=== PATIENT | female | born 1990 | race Caucasian/White ===

== ENCOUNTER 2016-09-20 16:55 | Emergency (ER) | payer MEDICAID, OTHER ==
[~2016-09-20] VITALS: Ht 170.2 cm; Wt 68.0 kg
[~2016-09-20 16:55] MED LIST: FIORIC PO; LORTA5 PO; ZOFR4TAB3 SL
[2016-09-20 16:59] VITALS: BP 106/72; PULSE 87; RESP 16; TEMP 97.8; O2SAT 99
[2016-09-20] MEDS ORDERED: ZOFR4TAB PO (17:09)
[2016-09-20 17:22] LABS: BLOOD, URINE NEG (NEG); GLUCOSE,URINE NEG (NEG); KETONE, URINE NEG (NEG); PH, URINE 5.5 (5.0-8.5)
[2016-09-20] MEDS ORDERED: SODIUM CHLOR 0.9% 1000 ML INJ 1,000 ML IV SCH (17:26)
[2016-09-20 17:28] LABS: NITRITE,URINE POS (NEG)
[2016-09-20 17:29] LABS: BACTERIA, URINE RARE /hpf; COMMENT (UR) CULTURE INDICATED; CULTURE IF INDICATED CULTURE INDICATED; RBC, URINE 0-2 /hpf (0-3); SQUAMOUS EPITHELIAL CELL URINE 0-5 /hpf (0-5); URINE COLOR STRAW (YELLW/STRAW); WBC, URINE 0-2 /hpf (0-5)
[2016-09-20] MEDS ORDERED: MORPHINE SULFATE 4 MG/ML INJ IV PUSH ONE (17:30)
[2016-09-20] MEDS ORDERED: ONDANSETRON HCL 4 MG/2 ML VIAL IVP ONE (17:30)
[2016-09-20] MEDS ORDERED: SODIUM CHLORIDE 0.9% FLUSH 5 ML FLUSH IVF PRN (17:30)
[2016-09-20 17:34] LABS: AUTOMATED NEUTROPHIL # 4.3 TH/MM3 (1.8-7.7); BASOPHIL # 0.2 TH/MM3 (0-0.2); BASOPHIL % 2.5 % (0.0-2.0); EOSINOPHIL # 0.2 TH/MM3 (0-0.4); EOSINOPHIL % 2.3 % (0.0-4.0); HEMATOCRIT 36.5 % (35.0-46.0); HEMO FLAGS DIFF FINAL; LYMPH % 22.7 % (9.0-44.0); LYMPHOCYTE # 1.6 TH/MM3 (1.0-4.8); MEAN CELL VOLUME 86.1 FL (80.0-100.0); MEAN CORPUSCULAR HEMOGLOBIN 30.1 PG (27.0-34.0); MEAN CORPUSCULAR HGB CONC 34.9 % (32.0-36.0); MONO % 7.9 % (0.0-8.0); NEUT % 64.6 % (16.0-70.0); PLATELET COUNT 223 TH/MM3 (150-450); RED BLOOD COUNT 4.24 MIL/MM3 (4.00-5.30); RED CELL DISTRIBUTION WIDTH 12.1 % (11.6-17.2); WHITE BLOOD COUNT 6.8 TH/MM3 (4.0-11.0)
--- NOTE | 2016-09-20 17:34 | PD ---
HPI . Right upper quadrant abdominal pain Chief Complaint: Abdominal Pain Time Seen by Provider: 17:06 Travel History International Travel<30 days: No Contact w/Intl Traveler<30days: No Traveled to known affect area: No History of Present Illness HPI Patient presents with about a 3 or 4 day history of right upper quadrant abdominal pain. Pain is exacerbated by eating and movement. She reports associated nausea but no vomiting. No fever. No diarrhea. No urinary symptoms. Patient is about 8 weeks . She states that she had an ultrasound done by her telephonic rn earlier this week and that it showed an IUP. She denies any injury related to the such as abnormal bleeding, discharge, dyspareunia or pelvic cramping. PFSH Past Medical History Medical History: Denies Significant Hx Diminished Hearing: No Immunizations Current: Yes Tetanus Vaccination: Unknown ?: LMP: 07/15/16 : 1 Para: 1 Ectopic : No Ovarian Cysts: No Tubal Ligation: No Past Surgical History Cholecystectomy: Yes Hysterectomy: No Tonsillectomy: Yes Social History Alcohol Use: Yes (OCC) Tobacco Use: No Substance Use: No Allergies-Medications (Allergen,Severity, Reaction): Coded Allergies: No Known Allergies (Verified , 09/20/16) Reported Meds & Prescriptions Reported Meds & Active Scripts Active Bentyl (Dicyclomine HCl) 20 Mg Tab 20 Mg PO QID Phenergan (Promethazine HCl) 25 Mg Tab 25 Mg PO Q6H PRN Reported Zofran (Ondansetron HCl) 4 Mg Tab 4 Mg PO Q6HR PRN Review of Systems Except as stated in HPI: all other systems reviewed are Neg General / Constitutional: No: Fever, Chills Gastrointestinal: Positive: Nausea, Abdominal Pain, Loss of Appetite, No: Vomiting, Diarrhea, Constipation Genitourinary: No: Urgency, Frequency, Dysuria, Hematuria, Pelvic Pain, Flank Pain, Dyspareunia, Discharge, Vaginal Bleeding Physical Exam Narrative GENERAL: Healthy-appearing young woman in no acute distress SKIN: Warm and dry. HEAD: Atraumatic. Normocephalic. EYES: Pupils equal and round. ENT: No nasal bleeding or discharge. Mucous membranes pink and moist. NECK: Trachea midline. CARDIOVASCULAR: Regular rate and rhythm. Heart sounds are normal. RESPIRATORY: No accessory muscle use. Lungs are clear. GASTROINTESTINAL: Abdomen soft. Right upper quadrant tenderness. Nondistended. No suprapubic tenderness. MUSCULOSKELETAL: No obvious deformities. No edema. NEUROLOGICAL: Awake and alert. No obvious cranial nerve deficits. Motor grossly within normal limits. Normal speech. PSYCHIATRIC: Appropriate mood and affect; insight and judgment normal. Data Data Last Documented VS Vital Signs Date Time Temp Pulse Resp B/P Pulse Ox O2 Delivery O2 Flow Rate FiO2 09/20/16 16:59 97.8 87 16 106/72 99 Orders Urinalysis - C+S If Indicated (09/20/16 16:57) Ed Urine Pregnancytest Poc (09/20/16 16:57) Beta Hcg (Quant/Titer) (09/20/16 17:06) Us Pelvis (Ques Pr/Ect)W Trans (09/20/16 ) Ed Poc Ultrasound (09/20/16 17:06) Complete Blood Count With Diff (09/20/16 17:26) Comprehensive Metabolic Panel (09/20/16 17:26) Lipase (09/20/16 17:26) Iv Access Insert/Monitor (09/20/16 17:26) Morphine Inj (Morphine Inj) (09/20/16 17:30) Ondansetron Inj (Zofran Inj) (09/20/16 17:30) Sodium Chlor 0.9% 1000 Ml Inj (Ns 1000 M (09/20/16 17:26) Sodium Chloride 0.9% Flush (Ns Flush) (09/20/16 17:30) Urine Culture (09/20/16 17:05) Promethazine (Phenergan) (09/20/16 17:45) Labs Laboratory Tests Test 09/20/16 09/20/16 17:05 17:10 Urine Color STRAW Urine Turbidity CLEAR Urine pH 5.5 Urine Specific [place] 1.004 Urine Protein NEG mg/dL Urine Glucose (UA) NEG mg/dL Urine Ketones NEG mg/dL Urine Occult Blood NEG Urine Nitrite POS Urine Bilirubin NEG Urine Leukocyte Esterase NEG Urine RBC 0-2 /hpf Urine WBC 0-2 /hpf Urine Squamous Epithelial 0-5 /hpf Cells Urine Bacteria RARE /hpf Microscopic Urinalysis Comment CULTURE INDICATED White Blood Count 6.8 TH/MM3 Red Blood Count 4.24 MIL/MM3 Hemoglobin 12.8 GM/DL Hematocrit 36.5 % Mean Corpuscular Volume 86.1 FL Mean Corpuscular Hemoglobin 30.1 PG Mean Corpuscular Hemoglobin 34.9 % Concent Red Cell Distribution Width 12.1 % Platelet Count 223 TH/MM3 Mean Platelet Volume 7.6 FL Neutrophils (%) (Auto) 64.6 % Lymphocytes (%) (Auto) 22.7 % Monocytes (%) (Auto) 7.9 % Eosinophils (%) (Auto) 2.3 % Basophils (%) (Auto) 2.5 % Neutrophils # (Auto) 4.3 TH/MM3 Lymphocytes # (Auto) 1.6 TH/MM3 Monocytes # (Auto) 0.5 TH/MM3 Eosinophils # (Auto) 0.2 TH/MM3 Basophils # (Auto) 0.2 TH/MM3 CBC Comment DIFF FINAL Differential Comment Sodium Level 140 MEQ/L Potassium Level 3.9 MEQ/L Chloride Level 107 MEQ/L Carbon Dioxide Level 23.1 MEQ/L Anion Gap 10 MEQ/L Blood Urea Nitrogen 6 MG/DL Creatinine 0.60 MG/DL Estimat Glomerular Filtration 119 ML/MIN Rate Random Glucose 102 MG/DL Calcium Level 8.4 MG/DL Total Bilirubin 0.5 MG/DL Aspartate Amino Transf 28 U/L (AST/SGOT) Alanine Aminotransferase 42 U/L (ALT/SGPT) Alkaline Phosphatase 71 U/L Total Protein 6.8 GM/DL Albumin 3.3 GM/DL Lipase 111 U/L Human Chorionic Gonadotropin, 369054 MIU/ML Quant MDM Medical Decision Making Medical Screen Exam Complete: Yes Emergency Medical Condition: Yes Differential Diagnosis Differential diagnosis of abdominal pain includes but is not limited to gastritis, pancreatitis, hepatitis, gastroenteritis, gallbladder disease, constipation, urinary retention, UTI, peptic ulcer disease, diverticulitis or appendicitis Narrative Course Patient presents complaining with right upper quadrant abdominal pain. Incidentally, she is . However, her symptoms do not sound like they are related to . She reports positive previous similar symptoms when she had gallstone pancreatitis. She has subsequently had a cholecystectomy. Her CBC is normal. UA shows rare bacteria and is nitrite positive. She has normal liver function studies and a normal lipase. Quantitative hCG is 182,000. The patient has no evidence of pancreatitis. She is not septic. She does have a UTI. Verbal report from the ultrasound technologist sonographer is that she has a 9 week viable IUP. Diagnosis Primary Impression: Right upper quadrant abdominal pain Additional Impressions: Qualified Code: Z3A.09 - 9 weeks gestation of UTI (urinary tract infection) Qualified Code: N30.01 - Acute cystitis with hematuria Scripts Nitrofurantoin Monohydrate Macrocrystals (Macrobid)100 Mg [id number] Mg PO BID #14 CAP Ref 0 Prov:Ingrid Montana MD 09/20/16 Dicyclomine (Bentyl)20 Mg Tab20 Mg PO QID #10 TAB Ref 0 Prov:Ingrid Montana MD 09/20/16 Promethazine (Phenergan)25 Mg Tab25 Mg PO Q6H PRN (Nausea/Vomiting) #10 TAB Ref 0 Prov:Ingrid Montana MD 09/20/16 Disposition: 01 DISCHARGE HOME Condition: Stable Ingrid Montana MD Sep 20, 2016 17:34
[2016-09-20 17:36] LABS: CHLORIDE 107 MEQ/L (98-107); POTASSIUM 3.9 MEQ/L (3.5-5.1); SODIUM (NA) 140 MEQ/L (136-145)
[2016-09-20 17:40] LABS: ANION GAP 10 MEQ/L (5-15); BICARBONATE 23.1 MEQ/L (21.0-32.0); BLOOD UREA NITROGEN 6 MG/DL (7-18)
[2016-09-20 17:43] LABS: ALT (GPT) 42 U/L (10-53); AST (GOT) 28 U/L (15-37); GLOMERULAR FILTRATION RATE 119 ML/MIN (>89)
[2016-09-20 17:44] LABS: TOTAL BILIRUBIN ADULT 0.5 MG/DL (0.2-1.0)
[2016-09-20] MEDS ORDERED: PROMETHAZINE HCL 25 MG TAB PO ONE (17:45)
[2016-09-20 17:46] LABS: ALKALINE PHOSPHATASE 71 U/L (45-117)
[2016-09-20 17:53] LABS: BETA HCG QUANT 182411 MIU/ML (0-5)
[2016-09-20] MEDS ORDERED: BENT20TA PO (18:10)
[2016-09-20] MEDS ORDERED: PROM25TA5 PO (18:10)
[2016-09-20] MEDS ORDERED: MACR100C2 PO (18:24)
[2016-09-20 18:56] VITALS: RESP 16
--- NOTE | 2016-09-20 19:07 | RADHPO ---
EXAM DATE/TIME: 09/20/2016 22:57 [facility] COMPARISON: No previous studies available for comparison. INDICATIONS : Pelvic pain. LAB(S): Beta-hC MEDICAL HISTORY : . SURGICAL HISTORY : Tonsillectomy. Cholecystectomy. ENCOUNTER: Initial ACUITY: 1 day PAIN SCORE: 5/10 LOCATION: Bilateral pelvis MEASUREMENTS: UTERUS: 10.9 x 8.0 x 6.5 cm ENDOMETRIAL STRIPE: 3 mm RIGHT OVARY: 3.0 x 2.2 x 1.3 cm LEFT OVARY: 4.1 x 3.4 x 2.5 cm FINDINGS: UTERUS: There is a single live intrauterine gestation. cardiac activity is identified. Th e crown-rump length is 1.9 cm which corresponds to a gestational age of 8 weeks, 3 days. There is so me minimal cystic change seen in the subchorionic region around the fundus which may represent some m ild hemorrhage. RIGHT OVARY: The right ovary appears normal. LEFT OVARY: There is a 2.8 x 2.6 x 2.2 cm cystic area seen at the left ovary likely related to a corpus luteal cyst. MISCELLANEOUS: There is mild free fluid in the pelvis. CONCLUSION: 1. Single live IUP at 8 weeks, 3 days. There may be a small area of subchorionic hemorrhage over th e fundal portion of the gestation. 2. Small amount of fluid in the pelvis. Hiram Hawkins MD on September 20, 2016 at 18:59 Board Certified Radiologist. This report was verified electronically.
[2016-09-20 19:23] VITALS: BP 106/71
== END 2016-09-20 19:33 | disposition home or self-care (01) ==
LOC: PHED 16:55
DX: O26.891 Other specified pregnancy related conditions, first trimester (principal); R10.11 Right upper quadrant pain
CPT/HCPCS: 76700; 76817; 80053; 81001; 83690; 84702; 84703; 85025; 87086; 96361; 96374; 99284; J2270; J7030; Q0169

== ENCOUNTER 2017-03-08 20:55 | Emergency (ER) | payer OTHER ==
[~2017-03-08 20:55] MED LIST changes: +BENT20TA PO; -FIORIC PO; -LORTA5 PO; +MACR100C2 PO; +PROM25TA5 PO; +ZOFR4TAB PO; -ZOFR4TAB3 SL
--- NOTE | 2017-03-08 21:45 | PD ---
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 9 oz. vaginal delivery complicated by postdates Past Surgical History Narrative Surgical Tonsils and gallbladder removed Family History Narrative Family History Heart disease diabetes Social History Alcohol Use: No Tobacco Use: No Substance Abuse: No Allergies-Medications (Allergen,Severity, Reaction): Coded Allergies: No Known Allergies (Verified , 09/20/16) Home Meds Active Scripts Nitrofurantoin Monohydrate Macrocrystals (Macrobid)100 Mg Qnu325 Mg PO BID #14 CAP Ref 0 Prov:Ingrid Montana MD 09/20/16 Dicyclomine (Bentyl)20 Mg Tab20 Mg PO QID #10 TAB Ref 0 Prov:Ingrid Montana MD 09/20/16 Promethazine (Phenergan)25 Mg Tab25 Mg PO Q6H PRN (Nausea/Vomiting) #10 TAB Ref 0 Prov:Ingrid Montana MD 09/20/16 Reported Medications Ondansetron (Zofran)4 Mg Tab4 Mg PO Q6HR PRN (NAUSEA OR VOMITING) Ref 0 09/20/16 Review of Systems Respiratory: Short of Breath Gastrointestinal: Abdominal Pain (as per history of present illness) Genitourinary: Frequency Musculoskeletal: Other (low back pain) Physical Exam Narrative GENERAL: Well-nourished, well-developed patient. Alert oriented 3 and cooperative in no acute distress SKIN: Warm and dry. HEAD: Normocephalic and atraumatic. EYES: No scleral icterus. No injection or drainage. ENT: No nasal drainage noted. Mucous membranes pink. Airway patent. NECK: Supple, trachea midline. No JVD. CARDIOVASCULAR: Regular rate and rhythm without murmurs, gallops, or rubs. RESPIRATORY: Breath sounds equal bilaterally. No accessory muscle use. ABDOMEN/GI: Gravid consistent with 32 weeks the uterus is soft nontender no palpable contractions mild tenderness in the right fundal area the right upper quadrant itself is nontender the epigastric area is negative bowel sounds are positive Gravid to [-] weeks size 32 Fundal Height: [-] GENITOURINARY: External Genitalia: intact and normal in appearance BUS glands: [-] Cervix: [-] Posterior firm Dilatation: [-] Closed Effacement: [-] 0 Station: [-] Ballotable Presentation: [-] Vertex Membranes: [intact o Uterine Contractions: [-]0 FHT's: Category: [-] 1 Baseline: [-] 150 Reactive: [-] + Variability: [-] Moderate Decels: [-] 0 EXTREMITIES: No cyanosis or edema. 2+ reflexes BACK: Nontender without obvious deformity. Uncomfortable when both kidneys retouched NEUROLOGICAL: Awake and alert. Motor and sensory grossly within normal limits. Five out of 5 muscle strength in all muscle groups. Normal speech. Data Data Vital Signs Reviewed: Yes (blood pressures 113/72 pulse 106 temperatures 98.2) MDM Medical Record Reviewed: No (no records available) Interpretation(s) 26-year-old at 32 weeks and 3 days Not in labor Generally not feeling well Upper abdominal pain Rule out UTI Narrative Course / MDM Liver function studies are normal White count is not elevated Hemoglobin is 10 Category 1 tracing no contractions Plan External monitoring By mouth fluid hydration CBC CMP uric acid urinalysis Reevaluation Physician Communication Spoke with Dr. Schwarz she agrees with evaluation and management bile salts have been ordered however the patient has not had the blood drawn she is encouraged to have the blood drawn tomorrow She is to call Dr. Schwarz's office in the morning to make an appointment to be seen within the next 24-48 hours she is to have her bile salts drawn Diagnosis Diagnosis: Primary Impression: 32 weeks gestation of Additional Impressions: Abdominal pain Qualified Code: R10.10 - Pain of upper abdomen [place]' contraction Disposition: 01 DISCHARGE HOME Condition: Stable January Madrid MD Mar 08, 2017 21:45
[2017-03-08 22:04] LABS: BACTERIA, URINE RARE /hpf; BLOOD, URINE NEG (NEG); COMMENT (UR) CULT NOT INDICATED; CULTURE IF INDICATED CULT NOT INDICATED; GLUCOSE,URINE NEG (NEG); KETONE, URINE NEG (NEG); NITRITE,URINE NEG (NEG); PH, URINE 7.5 (5.0-8.5); SQUAMOUS EPITHELIAL CELL URINE 2 /hpf (0-5); URINE COLOR YELLOW (YELLW/STRAW)
[2017-03-08 22:06] LABS: HEMATOCRIT 30.7 % (35.0-46.0); MEAN CELL VOLUME 83.8 FL (80.0-100.0); MEAN CORPUSCULAR HEMOGLOBIN 29.1 PG (27.0-34.0); MEAN CORPUSCULAR HGB CONC 34.8 % (32.0-36.0); PLATELET COUNT 233 TH/MM3 (150-450); RED BLOOD COUNT 3.67 MIL/MM3 (4.00-5.30); RED CELL DISTRIBUTION WIDTH 13.6 % (11.6-17.2); REVIEW FLAG FINAL; WHITE BLOOD COUNT 10.5 TH/MM3 (4.0-11.0)
[2017-03-08 22:25] LABS: ALT (GPT) 48 U/L (10-53); ANION GAP 8 MEQ/L (5-15); AST (GOT) 33 U/L (15-37); BICARBONATE 24.2 MEQ/L (21.0-32.0); BLOOD UREA NITROGEN 2 MG/DL (7-18); CHLORIDE 108 MEQ/L (98-107); GLOMERULAR FILTRATION RATE 208 ML/MIN (>89); POTASSIUM 3.6 MEQ/L (3.5-5.1); SODIUM (NA) 140 MEQ/L (136-145); URIC ACID 3.2 MG/DL (2.6-6.0)
[2017-03-08 22:36] LABS: ALKALINE PHOSPHATASE 184 U/L (45-117); TOTAL BILIRUBIN ADULT 0.6 MG/DL (0.2-1.0)
== END 2017-03-08 22:46 | disposition home or self-care (01) ==
LOC: HOBED 20:55
DX: O47.03 False labor before 37 completed weeks of gestation, third trimester (principal); Z3A.32 32 weeks gestation of pregnancy
CPT/HCPCS: 36415; 59025; 80053; 81001; 84550; 85027

== ENCOUNTER 2017-04-22 17:58 | Inpatient (IN) | payer OTHER ==
[2017-04-22] VITALS (11 sets, daily range): BP systolic 105; BP diastolic 56; PULSE 88; RESP 18; TEMP 97.8
[2017-04-22] MEDS: LACTATED RINGER'S 1000 ML INJ 1,000 ML IV SCH (07:00)
[~2017-04-22 17:58] MED LIST changes: +AMPICILLIN 2 GM/NS 100 ML IV ONE
[2017-04-22] MEDS ORDERED: NS 500 ML BOLUS IV PRN (20:00)
[2017-04-22] MEDS ORDERED: LACTATED RINGER'S 1000 ML BOLUS IV PRN (20:00)
[2017-04-22] MEDS ORDERED: NS 1000 ML IV PRN (20:00)
[2017-04-22] MEDS: LACTATED RINGER'S 1000 ML IV SCH (20:00)
[2017-04-22] MEDS ORDERED: NS 1000 ML OTHER PRN (20:00)
[2017-04-22] MEDS ORDERED: ONDANSETRON HCL 4 MG/2 ML VIAL IV PRN (20:15)
[2017-04-22] MEDS ORDERED: DINOPROSTONE 10 MG INSERT - REMOVE AT 0600 VAGINAL ONE (20:15)
[2017-04-22] MEDS ORDERED: OXYTOCIN 30 UNITS 500ML PREMIX IV ONE (20:15)
[2017-04-22] MEDS ORDERED: LIDOCAINE HCL 1% 50 ML VIAL I-DERMAL PRN (20:15)
[2017-04-22] MEDS ORDERED: OXYTOCIN 30 UNITS/NS 500ML PREMIX IV SCH (20:15)
[2017-04-22] MEDS ORDERED: CITRIC ACID-SODIUM CITRATE LIQ 30 ML UDC PO SCH (20:15)
[2017-04-22] MEDS ORDERED: MINERAL OIL 10 ML VIAL TOPICAL PRN (20:15)
[2017-04-22] MEDS ORDERED: LIDOCAINE HCL 1% 50 ML VIAL INFIL PRN (20:15)
[2017-04-22 20:21] LABS: BASOPHIL % 0.2 % (0.0-2.0); EOSINOPHIL # 0.1 TH/MM3 (0-0.4); EOSINOPHIL % 0.7 % (0.0-4.0); HEMATOCRIT 31.5 % (35.0-46.0); LYMPH % 14.7 % (9.0-44.0); LYMPHOCYTE # 1.7 TH/MM3 (1.0-4.8); MEAN CORPUSCULAR HEMOGLOBIN 26.5 PG (27.0-34.0); MEAN CORPUSCULAR HGB CONC 33.1 % (32.0-36.0); MONO % 7.7 % (0.0-8.0); NEUT % 76.7 % (16.0-70.0); PLATELET COUNT 258 TH/MM3 (150-450); RED BLOOD COUNT 3.93 MIL/MM3 (4.00-5.30); RED CELL DISTRIBUTION WIDTH 14.5 % (11.6-17.2); WHITE BLOOD COUNT 11.7 TH/MM3 (4.0-11.0)
[2017-04-22 20:23] LABS: HEMO FLAGS AUTO DIFF
[2017-04-22] MEDS ORDERED: ZOLPIDEM TARTRATE 10 MG TAB PO PRN (20:30)
[2017-04-22 20:32] LABS: BACTERIA, URINE RARE /hpf; BLOOD, URINE NEG (NEG); COMMENT (UR) CULT NOT INDICATED; CULTURE IF INDICATED CULT NOT INDICATED; GLUCOSE,URINE NEG (NEG); KETONE, URINE NEG (NEG); NITRITE,URINE NEG (NEG); PH, URINE 6.5 (5.0-8.5); SQUAMOUS EPITHELIAL CELL URINE 3 /hpf (0-5); URINE COLOR LIGHT-YELLOW (YELLW/STRAW)
[2017-04-22 21:20] LABS: BANDS 15 % (0-6); METAMYELOCYTES 3 % (0-1); NEUTROPHIL # MANUAL DIFF 9.9 TH/MM3 (1.8-7.7); POLYS (SEG NEUTROPHILS) 67 % (16-70); WBC DIFF SAMPLE 100
[2017-04-22 21:22] LABS: PLATELET ESTIMATE SMEAR NORMAL (NORMAL); PLATELET MORPHOLOGY NORMAL (NORMAL); SCAN/DIFF FINAL DIFF MANUAL
[2017-04-23] VITALS (64 sets, daily range): BP systolic 77–144; BP diastolic 54–104; PULSE 69–136; RESP 17–19; TEMP 97.7–98.4
[2017-04-23] MEDS: LACTATED RINGER'S 1000 ML IV SCH (04:00)
[2017-04-23] MEDS: LACTATED RINGER'S 1000 ML INJ 1,000 ML IV SCH ×2 (04:00→12:00)
[2017-04-23] MEDS ORDERED: OXYTOCIN 30 UNITS/NS 500ML PREMIX IV SCH (06:30)
[2017-04-23] MEDS ORDERED: AMPICILLIN 1 GM/NS 100 ML IV SCH ×2 (10:00)
[2017-04-23] MEDS ORDERED: fentaNYL 2MCG-BUPIV 0.125% INJ 100 ML ONE (13:30)
[2017-04-23] MEDS ORDERED: MEASLES, MUMPS, RUBELLA VACCINE 0.5 ML VIAL SQ ONE (16:00)
[2017-04-23] MEDS ORDERED: DIPHTH/TETANUS/ACEL PERTUSSIS (BOOSTER) 0.5 ML VIAL/PFS IM ONE (16:00)
--- NOTE | 2017-04-23 16:52 | PD.OB.DELI ---
Weeks gestation: 39 Gest age assessed date: Apr 23, 2017 Gest age assessed time: 09:00 Pt started active labor?: No Medical induction of labor?: Yes Medical induction start date: Apr 22, 2017 Medical induction start time: 18:00 Artificial rupture of membrane: Yes Anesthesia: Epidural Episiotomy: None Vaginal Delivery: Normal Presentation: Occiput anterior Nuchal Cord: None Delayed cord clamping (45 sec): Yes : Female Delivery date: Apr 23, 2017 Delivery time: 16:36 One Minute : 8 Five Minute : 9 Placenta: Spontaneous delivery, Intact, 3 vessel cord Laceration: No lacerations Maritza Galarza MD Apr 23, 2017 16:52
[2017-04-23] MEDS ORDERED: OXYTOCIN 30 UNITS-500ML PREMIX 500 ML IV SCH (17:00)
[2017-04-23] MEDS ORDERED: ALUMINUM/MAGNESIUM/SIMETH 30 ML CUP PO PRN (17:00)
[2017-04-23] MEDS ORDERED: WITCH HAZEL 50%/GLYCERIN 12.5% 40 PAD JAR TOPICAL PRN (17:00)
[2017-04-23] MEDS ORDERED: ACETAMINOPHEN 325 MG TAB PO PRN (17:00)
[2017-04-23] MEDS ORDERED: DOCUSATE SODIUM 50 MG/SENNA 8.6 MG TAB PO PRN (17:00)
[2017-04-23] MEDS ORDERED: SODIUM CHLORIDE 0.9% FLUSH 10 ML FLUSH IV FLUSH PRN (17:00)
[2017-04-23] MEDS ORDERED: BENZOCAINE 20% TOPICAL SPRAY 60 ML CAN TOPICAL PRN (17:00)
[2017-04-23] MEDS ORDERED: ONDANSETRON ODT 4 MG TAB PO PRN (17:00)
[2017-04-23] MEDS ORDERED: ZOLPIDEM TARTRATE 5 MG TAB PO PRN (17:00)
[2017-04-23] MEDS ORDERED: SODIUM CHLORIDE 0.9% FLUSH 10 ML FLUSH IV FLUSH SCH (21:00)
[2017-04-23] MEDS: IBUPROFEN 600 MG TAB PO PRN (22:35)
[2017-04-24] MEDS: oxyCODONE/ACETAMINOPHEN 5 MG/325 MG TAB PO PRN ×4 (02:48→19:20)
[2017-04-24] MEDS ORDERED: NO SYSTEM NARCOTICS PRN (06:45)
[2017-04-24] MEDS ORDERED: ePHEDrine/NS 25 MG/5 ML SYR IV PRN (06:45)
[2017-04-24] MEDS ORDERED: fentaNYL 2MCG-BUPIV 0.125% 100 ML EPIDURAL SCH (06:45)
[2017-04-24] MEDS ORDERED: DO NOT ADMINISTER ANTICOAGULANTS PRN (06:45)
[2017-04-24] MEDS: IBUPROFEN 600 MG TAB PO PRN ×3 (07:17→19:20)
[2017-04-24 08:25] VITALS: BP 104/63; PULSE 71; RESP 18; TEMP 97.8
--- NOTE | 2017-04-24 08:51 | HHI.OB ---
Subjective Post Day: 1 Remarks PPD # 1 s/p doing well...GBS + so will need to stay until tomorrow Objective Vitals/I&O Vital Signs Date Time Temp Pulse Resp B/P (MAP) Pulse Ox O2 Delivery O2 Flow Rate FiO2 04/23/17 21:00 98.4 04/23/17 21:00 93 18 109/76 (87) 04/23/17 18:35 17 04/23/17 18:30 84 115/79 (91) 04/23/17 18:01 80 109/68 (82) 04/23/17 17:50 18 04/23/17 17:46 136 113/87 (96) 04/23/17 17:35 18 04/23/17 17:31 88 112/72 (85) 04/23/17 17:15 97 108/82 (91) 04/23/17 17:00 96 110/77 (88) 04/23/17 16:58 17 04/23/17 16:50 120 103/79 (87) 04/23/17 16:50 98.2 18 04/23/17 16:49 97 108/73 (85) 04/23/17 16:12 97.7 17 04/23/17 16:00 93 103/64 (77) 04/23/17 15:31 96 103/63 (76) 04/23/17 15:01 90 111/70 (84) 04/23/17 14:55 74 04/23/17 14:50 77 04/23/17 14:45 81 18 04/23/17 14:40 70 04/23/17 14:35 91 04/23/17 14:31 102 107/74 (85) 04/23/17 14:30 90 04/23/17 14:25 81 04/23/17 14:20 80 04/23/17 14:15 86 04/23/17 14:15 84 110/70 (83) 04/23/17 14:15 17 04/23/17 14:12 87 103/70 (81) 04/23/17 14:11 74 77/59 (65) 04/23/17 14:10 86 04/23/17 14:05 82 109/68 (82) 04/23/17 14:05 83 04/23/17 14:00 89 04/23/17 14:00 81 108/70 (83) 04/23/17 13:55 89 04/23/17 13:55 85 124/68 (86) 04/23/17 13:51 94 100/73 (82) 04/23/17 13:50 85 04/23/17 13:46 90 124/74 (91) 04/23/17 13:45 79 04/23/17 13:45 98.2 04/23/17 13:41 99 144/83 (103) 04/23/17 13:40 97 04/23/17 13:35 92 137/104 (115) 04/23/17 13:35 117 04/23/17 13:31 98 138/89 (105) 04/23/17 12:15 17 04/23/17 12:14 93 98/54 (69) 04/23/17 11:45 18 04/23/17 11:45 97.8 04/23/17 11:12 19 04/23/17 11:09 69 116/69 (85) 04/23/17 10:45 18 04/23/17 10:15 18 04/23/17 09:45 17 04/23/17 09:45 97.8 04/23/17 09:15 17 Objective Remarks GENERAL: Well-nourished, well-developed patient. CARDIOVASCULAR: Regular rate and rhythm without murmurs, gallops, or rubs. RESPIRATORY: Breath sounds equal bilaterally. No accessory muscle use. ABDOMEN/GI: Abdomen soft, non-tender. Fundus: Firm, non-tender at umbilicus. GENITOURINARY: Light to moderate bleeding. EXTREMITIES: No cyanosis or edema, non-tender, without signs of DVT. Medications and IVs Current Medications Medications (Trade) Dose Ordered Sig/Jimbo Route Start Time Stop Time Status Last Admin Lactated Ringer's 1,000 ml @ 125 mls/hr Q8H IV 04/22/17 20:00 04/23/17 04:00 Lactated Ringer's 1,000 ml @ 3,000 mls/hr BOLUS PRN IV 04/22/17 20:00 Sodium Chloride 500 ml @ 1,000 mls/hr BOLUS PRN IV 04/22/17 20:00 Sodium Chloride 1,000 ml @ 100 mls/hr Q10H PRN IV 8/23/17 20:00 (Xylocaine 1% Inj (50 ml)) 0.1 ml UNSCH X1 PRN I-DERMAL 04/22/17 20:15 04/24/17 20:14 (Bicitra Liq) 30 ml GAS SYSTEMS WORKER PO 04/22/17 20:15 04/25/17 20:14 (Zofran Inj) 4 mg Q6H PRN IV 04/22/17 20:15 (fentaNYL INJ) 50 mcg Q1H PRN IV PUSH 04/22/17 20:15 04/23/17 09:15 (fentaNYL INJ) 100 mcg Q1H PRN IV PUSH 04/22/17 20:15 04/23/17 11:07 (Xylocaine 1% Inj (50 ml)) 10 ml UNSCH X1 PRN INFIL 04/22/17 20:15 04/24/17 20:14 (Muri-Lube Oil) 10 ml UNSCH PRN TOPICAL 04/22/17 20:15 Lactated Ringer's 1,000 ml @ 125 mls/hr Q8H IV 04/22/17 20:00 04/22/17 07:00 Sodium Chloride 1,000 ml @ 0 mls/hr UNSCH PRN OTHER 04/22/17 20:00 Oxytocin 500 ml @ 0 mls/hr TITRATE IV 04/23/17 06:30 04/23/17 06:12 Ampicillin Sodium 1000 mg/Sodium Chloride 100 ml @ 400 mls/hr Q4H IV 04/23/17 10:00 04/23/17 12:35 (NS Flush) 2 ml BID IV FLUSH 04/23/17 21:00 (NS Flush) 2 ml UNSCH PRN IV FLUSH 04/23/17 17:00 (Tylenol) 650 mg Q4H PRN PO 04/23/17 17:00 04/23/17 22:35 (Motrin) 600 mg Q6H PRN PO 04/23/17 17:00 04/24/17 07:17 (Percocet 5-325 Mg) 1 tab Q4H PRN PO 04/23/17 17:00 04/24/17 07:17 (Percocet 5-325 Mg) 2 tab Q4H PRN PO 04/23/17 17:00 (Americaine 20% Top Spr) 1 spray Q4H PRN TOPICAL 04/23/17 17:00 (Tucks Pads) 1 applic QID PRN TOPICAL 04/23/17 17:00 (Ruth-Colace) 2 tab Q12H PRN PO 04/23/17 17:00 (Ambien) 5 mg HS PRN PO 04/23/17 17:00 (Mag-Al Plus Susp Liq) 15 ml Q8H PRN PO 04/23/17 17:00 (Zofran Odt) 4 mg Q6H PRN PO 04/23/17 17:00 Miscellaneous Information No systemic narcotics to be given except... UNSCH PRN .XX 04/24/17 06:45 04/25/17 06:44 Miscellaneous Information DO NOT ADMINISTER ANY ANTICOAGUL... UNSCH PRN .XX 04/24/17 06:45 04/25/17 06:44 Fentanyl/ Bupivacaine HCl 100 ml @ 0 mls/hr TITRATE EPIDURAL 04/24/17 06:45 (ePHEDrine/NS 25 MG/5 ML SYR) 10 mg UNSCH PRN IV 04/24/17 06:45 04/25/17 06:44 Assessment/Plan Assessment and Plan PPD # 1 s/p doing well, discharge tomorrow Maritza Galarza MD Apr 24, 2017 08:51
[2017-04-24 21:35] VITALS: BP 102/58; PULSE 67; RESP 16; TEMP 97.8
[2017-04-25] MEDS: oxyCODONE/ACETAMINOPHEN 5 MG/325 MG TAB PO PRN ×3 (01:10→13:19)
[2017-04-25] MEDS: IBUPROFEN 600 MG TAB PO PRN ×3 (01:10→13:20)
--- NOTE | 2017-04-25 06:49 | HHI.DCPOC ---
Discharge Care Plan Diagnosis: (1) Spontaneous vaginal delivery Report Symptoms to Your Doctor -Temperature above 100.5 degrees -Redness, of incision or excessive or foul smelling drainage -Unusual pain or calf pain -Increased vaginal bleeding -Painful or difficulty urinating -Feelings of extreme sadness or anxiety after 2 weeks Goals to Promote Your Health * To prevent worsening of your condition and complications * To maintain your health at the optimal level Directions to Meet Your Goals Take your medications as prescribed Follow your dietary instruction Follow activity as directed Ensure plenty of rest for recovery Drink fluids for hydration Keep your appointments as scheduled Take your immunizations and boosters as scheduled If your symptoms worsen call your PCP, if no PCP go to Urgent Care Center or Emergency Room Smoking is Dangerous to Your Health. Avoid second hand smoke Call the 24-hour crisis hotline for domestic abuse at Hiram Caballero MD Apr 25, 2017 06:49
[2017-04-25] MEDS ORDERED: OXYC1TAB63 PO (06:51)
--- NOTE | 2017-04-25 06:53 | HHI.OB ---
Subjective Post Day: 2 Remarks doing well Objective Vitals/I&O Vital Signs Date Time Temp Pulse Resp B/P (MAP) Pulse Ox O2 Delivery O2 Flow Rate FiO2 04/24/17 21:35 97.8 67 16 102/58 (73) 04/24/17 08:25 71 18 104/63 (77) 04/24/17 08:25 97.8 Objective Remarks GENERAL: Well-nourished, well-developed patient. . ABDOMEN/GI: Abdomen soft, non-tender. Fundus: Firm, non-tender at umbilicus. GENITOURINARY: Light to moderate bleeding. EXTREMITIES: No cyanosis or edema, non-tender, without signs of DVT. Medications and IVs Current Medications Medications (Trade) Dose Ordered Sig/Jimbo Route Start Time Stop Time Status Last Admin Lactated Ringer's 1,000 ml @ 125 mls/hr Q8H IV 04/22/17 20:00 04/23/17 04:00 Lactated Ringer's 1,000 ml @ 3,000 mls/hr BOLUS PRN IV 04/22/17 20:00 Sodium Chloride 500 ml @ 1,000 mls/hr BOLUS PRN IV 04/22/17 20:00 Sodium Chloride 1,000 ml @ 100 mls/hr Q10H PRN IV 04/22/17 20:00 (Bicitra Liq) 30 ml COMMERCIAL TITLE EXAMINER PO 04/22/17 20:15 04/25/17 20:14 (Zofran Inj) 4 mg Q6H PRN IV 04/22/17 20:15 (fentaNYL INJ) 50 mcg Q1H PRN IV PUSH 04/22/17 20:15 04/23/17 09:15 (fentaNYL INJ) 100 mcg Q1H PRN IV PUSH 04/22/17 20:15 04/23/17 11:07 (Muri-Lube Oil) 10 ml UNSCH PRN TOPICAL 04/22/17 20:15 Lactated Ringer's 1,000 ml @ 125 mls/hr Q8H IV 04/22/17 20:00 04/22/17 07:00 Sodium Chloride 1,000 ml @ 0 mls/hr UNSCH PRN OTHER 04/22/17 20:00 Oxytocin 500 ml @ 0 mls/hr TITRATE IV 04/23/17 06:30 04/23/17 06:12 Ampicillin Sodium 1000 mg/Sodium Chloride 100 ml @ 400 mls/hr Q4H IV 04/23/17 10:00 04/23/17 12:35 (NS Flush) 2 ml BID IV FLUSH 04/23/17 21:00 (NS Flush) 2 ml UNSCH PRN IV FLUSH 04/23/17 17:00 (Tylenol) 650 mg Q4H PRN PO 04/23/17 17:00 04/23/17 22:35 (Motrin) 600 mg Q6H PRN PO 04/23/17 17:00 04/25/17 01:10 (Percocet 5-325 Mg) 1 tab Q4H PRN PO 04/23/17 17:00 04/24/17 13:45 (Percocet 5-325 Mg) 2 tab Q4H PRN PO 04/23/17 17:00 04/25/17 01:10 (Americaine 20% Top Spr) 1 spray Q4H PRN TOPICAL 04/23/17 17:00 (Tucks Pads) 1 applic QID PRN TOPICAL 04/23/17 17:00 (Ruth-Colace) 2 tab Q12H PRN PO 04/23/17 17:00 (Ambien) 5 mg HS PRN PO 04/23/17 17:00 (Mag-Al Plus Susp Liq) 15 ml Q8H PRN PO 04/23/17 17:00 (Zofran Odt) 4 mg Q6H PRN PO 04/23/17 17:00 Fentanyl/ Bupivacaine HCl 100 ml @ 0 mls/hr TITRATE EPIDURAL 04/24/17 06:45 Assessment/Plan Assessment and Plan PPD # 2 s/p doing well, discharge today stable condition Hiram Caballero MD Apr 25, 2017 06:53
--- NOTE | 2017-04-25 06:55 | HHI.DS ---
Admission Date Apr 22, 2017 at 17:58 Discharge Date: Apr 25, 2017 Admitting Diagnosis Diagnosis: Delivery Date: Apr 23, 2017 Vaginal Delivery: Normal : Female Brief History patient here for delivery Hospital Course on 04/23/2017 doing well ready for DC home Pt Condition on Discharge: Good Discharge Disposition: Discharge Home Discharge Instructions Diet Instructions: As Tolerated, No Restrictions Activities You Can Perform: Pelvic Rest Activities to Avoid: Driving for 24 hrs Follow up Referrals: AGRICULTURAL INSPECTOR - 2 Weeks @ [facility] with Maritza Galarza MD New Medications: Oxycodone-Acetaminophen (Oxycodone-Acetaminophen) 5-325 mg Tab 1 TAB PO Q4H PRN for PAIN SCALE 3 TO 5 for 7 Days, #20 TAB 0 Refills Continued Medications: Dicyclomine (Bentyl) 20 Mg Tab 20 MG PO QID for ABDOMINAL CRAMPING, #10 TAB 0 Refills Ondansetron (Zofran) 4 Mg Tab 4 MG PO Q6HR PRN for NAUSEA OR VOMITING, TAB 0 Refills Promethazine (Phenergan) 25 Mg Tab 25 MG PO Q6H PRN for Nausea/Vomiting, #10 TAB 0 Refills Discontinued Medications: Nitrofurantoin Monohydrate Macrocrystals (Macrobid) 100 Mg Cap 100 MG PO BID for Infection, #14 CAP 0 Refills Hiram Caballero MD Apr 25, 2017 06:55
[2017-04-25 09:45] VITALS: BP 96/58; PULSE 77; RESP 18; TEMP 98.1
== END 2017-04-25 19:03 | disposition home or self-care (01) | DRG 775 ==
LOC: H2EB 17:58 → H1EA 04-23 19:49
PROVIDERS: ADMIT Obstetrics & Gynecology; ATTEND Obstetrics & Gynecology
PROC: 10E0XZZ Delivery of Products of Conception, External Approach (ICD-10-PCS; principal; 2017-04-22)
PROC: 10907ZC Drainage of Amniotic Fluid, Therapeutic from Products of Conception, Via Natural or Artificial Opening (ICD-10-PCS; 2017-04-22)
PROC: 10907ZC Drainage of Amniotic Fluid, Therapeutic from Products of Conception, Via Natural or Artificial Opening (ICD-10-PCS; 2017-04-22)
PROC: 00HU33Z Insertion of Infusion Device into Spinal Canal, Percutaneous Approach (ICD-10-PCS; 2017-04-22)
PROC: 3E0R3CZ (ICD-10-PCS; 2017-04-22)
DX: O99.824 Streptococcus B carrier state complicating childbirth (principal); Z37.0 Single live birth; Z3A.39 39 weeks gestation of pregnancy
CPT/HCPCS: 59025; 81001; 85007; 85027; 86900; 86901; 90715; J0290; J2590; J3010; J7120

== ENCOUNTER 2017-09-28 21:48 | Emergency (ER) | payer MEDICAID, OTHER ==
[~2017-09-28] VITALS: Ht 170.2 cm; Wt 78.0 kg
[~2017-09-28 21:48] MED LIST changes: -AMPICILLIN 2 GM/NS 100 ML IV ONE; -MACR100C2 PO; +OXYC1TAB63 PO
[2017-09-28 22:42] VITALS: BP 136/64; PULSE 91; RESP 18; TEMP 97.9; O2SAT 98
[2017-09-28 23:39] VITALS: BP 117/62; PULSE 69; RESP 16; O2SAT 98
[2017-09-29] MEDS ORDERED: SODIUM CHLORIDE 0.9% FLUSH 10 ML FLUSH IV FLUSH PRN (00:45)
[2017-09-29 00:53] LABS: AUTOMATED NEUTROPHIL # 5.2 TH/MM3 (1.8-7.7); BASOPHIL % 0.4 % (0.0-2.0); EOSINOPHIL # 0.3 TH/MM3 (0-0.4); EOSINOPHIL % 3.1 % (0.0-4.0); HEMOGLOBIN 13.1 GM/DL (11.6-15.3); LYMPHOCYTE # 2.4 TH/MM3 (1.0-4.8); MEAN CELL VOLUME 84.7 FL (80.0-100.0); MEAN CORPUSCULAR HEMOGLOBIN 28.5 PG (27.0-34.0); MEAN CORPUSCULAR HGB CONC 33.6 % (32.0-36.0); MEAN PLATELET VOLUME 7.8 FL (7.0-11.0); MONO % 6.5 % (0.0-8.0); MONOCYTE # 0.5 TH/MM3 (0-0.9); PLATELET COUNT 232 TH/MM3 (150-450); RED CELL DISTRIBUTION WIDTH 13.3 % (11.6-17.2); WHITE BLOOD COUNT 8.4 TH/MM3 (4.0-11.0)
[2017-09-29 00:54] LABS: BILIRUBIN, URINE NEG (NEG); BLOOD, URINE NEG (NEG); GLUCOSE,URINE NEG (NEG); KETONE, URINE NEG (NEG); NITRITE,URINE NEG (NEG); URINE LEUKOCYTE ESTERASE NEG (NEG)
[2017-09-29 00:56] VITALS: BP 111/76; PULSE 89; RESP 18; O2SAT 98
[2017-09-29 01:01] LABS: CHLORIDE 105 MEQ/L (98-107); SODIUM (NA) 137 MEQ/L (136-145)
[2017-09-29 01:04] LABS: ALBUMIN 3.7 GM/DL (3.4-5.0); CALCIUM 8.7 MG/DL (8.5-10.1); LIPASE 148 U/L (73-393)
[2017-09-29 01:05] LABS: BICARBONATE 26.8 MEQ/L (21.0-32.0); BLOOD UREA NITROGEN 13 MG/DL (7-18); GLUCOSE,RANDOM 106 MG/DL (74-106); URINE COLOR YELLOW (YELLW/STRAW)
[2017-09-29 01:06] LABS: AMORPHOUS SEDIMENT, URINE FEW; MUCUS URINE FEW /lpf (OCC); SQUAMOUS EPITHELIAL CELL URINE 0-5 /hpf (0-5)
[2017-09-29 01:07] LABS: ALT (GPT) 36 U/L (10-53); AST (GOT) 25 U/L (15-37)
[2017-09-29 01:08] LABS: CREATININE 0.61 MG/DL (0.50-1.00); GLOMERULAR FILTRATION RATE 116 ML/MIN (>89); WBC, URINE 0-2 /hpf (0-5)
[2017-09-29 01:09] LABS: TOTAL BILIRUBIN ADULT 0.5 MG/DL (0.2-1.0); TOTAL PROTEIN 7.2 GM/DL (6.4-8.2)
[2017-09-29 01:10] LABS: ALKALINE PHOSPHATASE 80 U/L (45-117)
--- NOTE | 2017-09-29 01:23 | PD ---
HPI Chief Complaint: Pain: Acute or Chronic Time Seen by Provider: 00:40 Travel History International Travel<30 days: No Contact w/Intl Traveler<30days: No Traveled to known affect area: No History of Present Illness HPI The patient is a 27-year-old female who complains of right rib pain for one week. She denies any nausea or vomiting and specifically denies any abdominal pain. She has already had a cholecystectomy. She denies any fever. PFSH Past Medical History Diminished Hearing: No Immunizations Current: Yes Influenza Vaccination: No ?: Unknown LMP: 09/14/2017 : 1 Para: 1 Ectopic : No Ovarian Cysts: No Tubal Ligation: No Past Surgical History Cholecystectomy: Yes Hysterectomy: No Tonsillectomy: Yes Social History Alcohol Use: Yes (6 Beers a wk) Tobacco Use: Yes (2 PPD) Substance Use: No Allergies-Medications (Allergen,Severity, Reaction): Coded Allergies: No Known Allergies (Verified Adverse Reaction, Unknown, 09/28/17) Reported Meds & Prescriptions Reported Meds & Active Scripts Active Oxycodone-Acetaminophen 5-325 mg Tab 1 Tab PO Q4H PRN 7 Days Bentyl (Dicyclomine HCl) 20 Mg Tab 20 Mg PO QID Phenergan (Promethazine HCl) 25 Mg Tab 25 Mg PO Q6H PRN Reported Zofran (Ondansetron HCl) 4 Mg Tab 4 Mg PO Q6HR PRN Review of Systems Except as stated in HPI: all other systems reviewed are Neg Physical Exam Narrative GENERAL: Well-nourished, well-developed patient in slight apparent distress with her right rib pain. Her vital signs are normal SKIN: Focused skin assessment warm/dry. No skin rash is seen. HEAD: Normocephalic. EYES: No scleral icterus. No injection or drainage. NECK: Supple, trachea midline. No JVD or lymphadenopathy. CARDIOVASCULAR: Regular rate and rhythm without murmurs, gallops, or rubs. The patient has tenderness over the right ribs and pain is completely reproducible by pressure over the right ribs. There is no pain over the abdomen when I press on the abdomen except for it pulls on the ribs she stats. RESPIRATORY: Breath sounds equal bilaterally. No accessory muscle use. GASTROINTESTINAL: Abdomen soft, non-tender, nondistended. No guarding or rebound is present and Dumas's sign is negative. MUSCULOSKELETAL: No cyanosis, or edema. BACK: Nontender without obvious deformity. No CVA tenderness. Data Data Last Documented VS Vital Signs Date Time Temp Pulse Resp B/P (MAP) Pulse Ox O2 Delivery O2 Flow Rate FiO2 09/29/17 01:55 81 16 109/70 (83) 100 Room Air 09/28/17 22:42 97.9 Orders Orders Beta Hcg (Quant/Titer) (09/29/17 00:40) Complete Blood Count With Diff (09/29/17 00:40) Comprehensive Metabolic Panel (09/29/17 00:40) Lipase (09/29/17 00:40) Urinalysis - C+S If Indicated (09/29/17 00:40) Iv Access Insert/Monitor (09/29/17 00:40) Ecg Monitoring (09/29/17 00:40) Oximetry (09/29/17 00:40) Sodium Chloride 0.9% Flush (Ns Flush) (09/29/17 00:45) Ed Urine Pregnancytest Poc (09/29/17 00:51) Chest, Pa & Lat (09/29/17 01:17) Labs Laboratory Tests Test 09/29/17 00:44 White Blood Count 8.4 TH/MM3 Red Blood Count 4.60 MIL/MM3 Hemoglobin 13.1 GM/DL Hematocrit 39.0 % Mean Corpuscular Volume 84.7 FL Mean Corpuscular Hemoglobin 28.5 PG Mean Corpuscular Hemoglobin Concent 33.6 % Red Cell Distribution Width 13.3 % Platelet Count 232 TH/MM3 Mean Platelet Volume 7.8 FL Neutrophils (%) (Auto) 62.0 % Lymphocytes (%) (Auto) 28.0 % Monocytes (%) (Auto) 6.5 % Eosinophils (%) (Auto) 3.1 % Basophils (%) (Auto) 0.4 % Neutrophils # (Auto) 5.2 TH/MM3 Lymphocytes # (Auto) 2.4 TH/MM3 Monocytes # (Auto) 0.5 TH/MM3 Eosinophils # (Auto) 0.3 TH/MM3 Basophils # (Auto) 0.0 TH/MM3 CBC Comment DIFF FINAL Differential Comment Urine Color YELLOW Urine Turbidity SLIGHT Urine pH 6.0 Urine Specific Supai 1.018 Urine Protein NEG mg/dL Urine Glucose (UA) NEG mg/dL Urine Ketones NEG mg/dL Urine Occult Blood NEG Urine Nitrite NEG Urine Bilirubin NEG Urine Leukocyte Esterase NEG Urine WBC 0-2 /hpf Urine Squamous Epithelial Cells 0-5 /hpf Urine Amorphous Sediment FEW Urine Mucus FEW /lpf Microscopic Urinalysis Comment CULT NOT INDICATED Blood Urea Nitrogen 13 MG/DL Creatinine 0.61 MG/DL Random Glucose 106 MG/DL Total Protein 7.2 GM/DL Albumin 3.7 GM/DL Calcium Level 8.7 MG/DL Alkaline Phosphatase 80 U/L Aspartate Amino Transf (AST/SGOT) 25 U/L Alanine Aminotransferase (ALT/SGPT) 36 U/L Total Bilirubin 0.5 MG/DL Sodium Level 137 MEQ/L Potassium Level 3.6 MEQ/L Chloride Level 105 MEQ/L Carbon Dioxide Level 26.8 MEQ/L Anion Gap 5 MEQ/L Estimat Glomerular Filtration Rate 116 ML/MIN Lipase 148 U/L Human Chorionic Gonadotropin, Quant LESS THAN 1 MIU/ML MDM Medical Decision Making Medical Screen Exam Complete: Yes Emergency Medical Condition: Yes Medical Record Reviewed: Yes Interpretation(s) The chest x-ray shows no acute disease. The CBC is normal. The complete metabolic profile is normal. The lipase is normal and the beta-hCG is normal. The urinalysis is normal and culture is not indicated. Differential Diagnosis Rib pain, acute cholecystitis, cholelithiasis with colic, colitis, pleuritic pain, pneumothorax, pneumonia Narrative Course The patient has rib pain. She will get Motrin 600 mg 3 times daily and follow- up with her primary care physician. Diagnosis Primary Impression: Rib pain on right side Additional Instructions: The Motrin is one 600 mg capsule every 8 hours. This pain usually subsides when you get high anti-inflammatory levels in your blood. This may take 3 or 4 days. Follow-up this week with your primary care physician. Med/Other Pt SpecificInfo: Prescription(s) given Scripts Ibuprofen (Ibuprofen) 600 Mg Tab 600 MG PO TID, #33 TAB 0 Refills Prov: Juan Luis Gonzalez MD 09/29/17 Disposition: DISCHARGE HOME Condition: Stable Juan Luis Gonzalez MD Sep 29, 2017 01:23
[2017-09-29 01:55] VITALS: BP 109/70; PULSE 81; RESP 16; O2SAT 100
--- NOTE | 2017-09-29 01:56 | RADRPT ---
EXAM DATE/TIME: 09/29/2017 01:27 [facility] COMPARISON: No previous studies available for comparison. INDICATIONS : Right lower chest pain, cough. MEDICAL HISTORY : None. SURGICAL HISTORY : None. ENCOUNTER: Initial ACUITY: 1 day PAIN SCORE: 7/10 LOCATION: Right lower chest FINDINGS: PA and lateral views of the chest demonstrate the lungs to be symmetrically aerated without evidence of mass, infiltrate or effusion. The cardiomediastinal contours are unremarkable. Osseous structure s are intact. CONCLUSION: No acute disease. Mitesh Pereira MD on September 29, 2017 at 1:54 Board Certified Radiologist. This report was verified electronically.
[2017-09-29] MEDS ORDERED: IBUP-232 PO (02:53)
[2017-09-29] MEDS ORDERED: KETOROLAC TROMETHAMINE 60 MG/2 ML (IM) VIAL IVP ONE (03:00)
[2017-09-29 03:03] VITALS: BP 123/72
== END 2017-09-29 03:07 | disposition home or self-care (01) ==
LOC: PHED 21:48
DX: R07.81 Pleurodynia (principal); F17.210 Nicotine dependence, cigarettes, uncomplicated; Z79.899 Other long term (current) drug therapy
CPT/HCPCS: 71046; 80053; 81001; 83690; 84702; 84703; 85025; 96374; 99284; J1885